=== PATIENT | female | born 1935 | race Caucasian/White ===

== ENCOUNTER 2023-11-15 11:15 | Inpatient (IN) | payer OTHER ==
[~2023-11-15] VITALS: Ht 175.3 cm; Wt 57.2 kg
[2023-11-15] MEDS ORDERED: THYR90TA PO (11:57)
[2023-11-15] MEDS ORDERED: ASPI81TA31 PO (11:57)
[2023-11-15 12:55] LABS: ABG BASE EXCESS -2.7 mmol/L (-2.0-2.0); ABG HCO3 16.6 mmol/L (22.0-26.0); ABG PCO2 16.7 mmHg (35.0-48.0); ABG PH 7.615 (7.340-7.440); ABG PO2 373.1 mmHg (75.0-100.0); AaDO2 99.9 mmHg; COHb 0.1 % (0.0-3.9); MetHb 0.3 % (0.0-1.5); O2Hb 98.8 % (94.0-97.0)
[2023-11-15] MEDS ORDERED: GUAI-425 PO (13:06)
[2023-11-15] MEDS ORDERED: TRIMETHOPRIM PO (13:06)
[2023-11-15] MEDS ORDERED: PANT40TA49 PO (13:06)
[2023-11-15] MEDS ORDERED: CETI10TA18 PO (13:06)
[2023-11-15] MEDS ORDERED: PROM5SYR PO (13:06)
[2023-11-15] MEDS ORDERED: BREZTRI PO (13:06)
[2023-11-15] MEDS ORDERED: MUPI15CR TP (13:06)
[2023-11-15] MEDS ORDERED: ROSU20TA2 PO (13:06)
[2023-11-15] MEDS ORDERED: MEMA10TA PO (13:06)
[2023-11-15] MEDS ORDERED: FLUT1BLS6 IH (13:06)
[2023-11-15] MEDS ORDERED: FERR325T30 PO (13:06)
[2023-11-15] MEDS ORDERED: SULFAMETHOXAZOLE PO (13:06)
[2023-11-15] MEDS ORDERED: DOXY100C5 PO (13:06)
[2023-11-15] MEDS ORDERED: TYLENOL ARTHRITIS PO (13:06)
[2023-11-15] MEDS ORDERED: DICLOFENAC GEL TP (13:06)
[2023-11-15] MEDS ORDERED: VITAMIN D3 PO (13:06)
[2023-11-15] MEDS ORDERED: BUME1TAB8 PO (13:06)
[2023-11-15] MEDS ORDERED: METO-356 PO (13:06)
[2023-11-15] MEDS ORDERED: IV NORMAL SALINE 1000 ML BAG IV ONE (14:30)
[2023-11-15 17:12] LABS: BASOPHILS % (AUTO) 0.5 % (0.0-2.0); EOSINOPHILS # (AUTO) 0.1 K/uL (0.0-0.7); EOSINOPHILS % (AUTO) 0.6 % (0.0-7.0); HEMATOCRIT 34.2 % (31.2-41.9); HEMOGLOBIN 11.2 g/dL (10.9-14.3); LYMPHOCYTES # (AUTO) 1.5 K/uL (0.8-4.8); LYMPHOCYTES % (AUTO) 15.7 % (20.5-51.5); MEAN CORPUSCULAR HEMOGLOBIN 32.7 uug (24.7-32.8); MEAN CORPUSCULAR HGB CONC 33 g/dL (32.3-35.6); MEAN CORPUSCULAR VOLUME 99.6 fL (75.5-95.3); MONOCYTES # (AUTO) 1.4 K/uL (0.1-1.30); MONOCYTES % (AUTO) 15.4 % (0.0-11.0); NEUTROPHILS # (AUTO) 6.4 K/uL (1.8-8.9); NEUTROPHILS % (AUTO) 67.8 % (38.5-71.5); PLATELET COUNT (AUTO) 277 K/uL (179-408); RED BLOOD CELL COUNT(AUTO) 3.44 MIL/uL (3.63-4.92); RED CELL DISTRIBUTION WIDTH 14.7 % (12.3-17.7); WHITE BLOOD COUNT (AUTO) 9.4 K/uL (3.8-11.8)
[2023-11-15 17:19] LABS: DIFFERENTIAL COMMENT 1
[2023-11-15 17:20] LABS: BAND % (MANUAL) 2 % (0-10); LYMPHOCYTES % (MANUAL) 20 % (20-40); MONOCYTES % (MANUAL) 12 % (2-10)
[2023-11-15 17:21] LABS: NEUTROPHILS % (MANUAL) 66 % (42-75); PLATELET ESTIMATE ADEQUATE
[2023-11-15 17:31] LABS: CALCIUM 9.2 mg/dL (8.5-10.1); CARBON DIOXIDE 20 mmol/L (21-32); CHLORIDE 105 mmol/L (98-107); CREATININE 1.9 mg/dL (0.6-1.3); GLUCOSE 87 mg/dL (74-106); POTASSIUM 4.2 mmol/L (3.5-5.1); SODIUM SERUM 142 mmol/L (136-145); UREA NITROGEN, BLOOD 32 mg/dL (7-18)
[2023-11-15 17:44] LABS: ALANINE AMINOTRANSFERASE 48 U/L (14-59); ALBUMIN 3.5 g/dL (3.4-5.0); ALKALINE PHOSPHATASE 92 U/L (50-136); ASPARTATE AMINOTRANSFERASE 31 U/L (15-37); BILIRUBIN,DIRECT 0.1 mg/dL (0.0-0.2); BILIRUBIN,TOTAL 0.6 mg/dL (0.2-1.0); NT-PRO BNP 4111 pg/mL (0-125); TOTAL PROTEIN, SERUM 7.4 g/dL (6.4-8.2)
[2023-11-15] MEDS ORDERED: ENOXAPARIN SODIUM 60 MG/0.6 ML DISP.SYRIN SQ ONE ×2 (18:30→19:19)
[2023-11-16] MEDS ORDERED: MORPHINE SULFATE 2 MG/1 ML DISP.SYRIN IVP PRN (03:45)
[2023-11-16] MEDS ORDERED: CLONIDINE HCL 0.1 MG TABLET PO ONE (03:45)
[2023-11-16] MEDS ORDERED: ACETAMINOPHEN 325 MG TABLET PO PRN (03:45)
[2023-11-16] MEDS ORDERED: hydrALAZINE HCL 20 MG/1 ML VIAL IV PRN (03:45)
[2023-11-16] MEDS ORDERED: ALBUTEROL SULFATE 8 GM HFA.AER.AD IH PRN (03:45)
[2023-11-16] MEDS ORDERED: CLONIDINE HCL 0.1 MG TABLET ONE (03:54)
[2023-11-16] MEDS ORDERED: ALBUTEROL SULFATE 1.25 MG/3 ML NEBU NEB PRN (05:30)
[2023-11-16] MEDS: THYROID 60 MG TABLET PO SCH (07:00)
[2023-11-16] MEDS: PANTOPRAZOLE SODIUM 40 MG TABLET.DR PO SCH (07:00)
[2023-11-16] MEDS ORDERED: PANTOPRAZOLE SODIUM 40 MG TABLET.DR PO ONE (08:22)
[2023-11-16] MEDS ORDERED: Medication Not On Formulary EA (Thyroid (Armour Thyroid) 1 TAB) PO SCH (09:00)
[2023-11-16] MEDS ORDERED: MEMANTINE HCL 10 MG TABLET PO SCH (09:00)
[2023-11-16] MEDS ORDERED: Medication Not On Formulary EA (Rosuvastatin Calcium (Crestor) 1 TAB) PO SCH (09:00)
[2023-11-16] MEDS ORDERED: ASPIRIN 81 MG TAB.CHEW ONE (09:34)
[2023-11-16] MEDS ORDERED: methylPREDNISolone SOD SUCC 125 MG/2 ML VIAL ONE (09:34)
[2023-11-16] MEDS ORDERED: HEPARIN SODIUM,PORCINE 5,000 UNITS/ML VIAL ONE (09:35)
[2023-11-16] MEDS ORDERED: METOPROLOL SUCCINATE XL 25 MG TAB.SR.24H PO ONE (09:35)
[2023-11-16] MEDS: methylPREDNISolone SOD SUCC 40 MG/ML VIAL IV SCH ×2 (09:41→17:14)
[2023-11-16] MEDS: ASPIRIN 81 MG TAB.CHEW PO SCH (09:41)
[2023-11-16] MEDS: METOPROLOL SUCCINATE XL 25 MG TAB.SR.24H PO SCH (09:45)
[2023-11-16] MEDS: HEPARIN SODIUM,PORCINE 5,000 UNITS/ML VIAL SQ SCH ×2 (09:46→22:08)
[2023-11-16] MEDS: MEMANTINE HCL 5 MG TABLET PO SCH ×2 (09:54→17:17)
[2023-11-16] MEDS: FLUTICASONE/VILANTEROL 1 EACH BLST.W.DEV INH SCH (09:54)
[2023-11-16] MEDS ORDERED: ONDANSETRON 4 MG/2 ML VIAL ONE (10:01)
[2023-11-16] MEDS: ONDANSETRON 4 MG/2 ML VIAL IV PRN ×2 (10:06→10:47)
[2023-11-16] MEDS ORDERED: LORAZEPAM 2 MG/1 ML VIAL ONE (10:57)
[2023-11-16] MEDS ORDERED: LORAZEPAM 2 MG/1 ML VIAL IV PRN (11:15)
[2023-11-16] MEDS ORDERED: LORAZEPAM 1 MG TABLET PO PRN (11:45)
[2023-11-16] MEDS ORDERED: BUMETANIDE 1 MG TABLET PO SCH (12:10)
[2023-11-16] MEDS ORDERED: BUMETANIDE 1 MG TABLET ONE (12:34)
[2023-11-16] MEDS ORDERED: methylPREDNISolone SOD SUCC 40 MG/ML VIAL ONE (17:14)
[2023-11-16] MEDS ORDERED: ATORVASTATIN 40 MG TABLET PO SCH (21:00)
[2023-11-16 21:58] VITALS: BP 145/80; TEMP 97.8; O2SAT 98
[2023-11-17] MEDS: methylPREDNISolone SOD SUCC 40 MG/ML VIAL IV SCH (03:33)
[2023-11-17 05:50] VITALS: BP 146/79; TEMP 97.9; O2SAT 96
[2023-11-17] MEDS: PANTOPRAZOLE SODIUM 40 MG TABLET.DR PO SCH (06:20)
[2023-11-17 06:39] LABS: BASOPHILS % (AUTO) 0.1 % (0.0-2.0); DIFFERENTIAL COMMENT 0; EOSINOPHILS % (AUTO) 0.2 % (0.0-7.0); HEMATOCRIT 32.4 % (31.2-41.9); HEMOGLOBIN 10.8 g/dL (10.9-14.3); LYMPHOCYTES # (AUTO) 0.8 K/uL (0.8-4.8); LYMPHOCYTES % (AUTO) 9.8 % (20.5-51.5); MEAN CORPUSCULAR HEMOGLOBIN 33.4 uug (24.7-32.8); MEAN CORPUSCULAR HGB CONC 33 g/dL (32.3-35.6); MONOCYTES # (AUTO) 0.6 K/uL (0.1-1.30); MONOCYTES % (AUTO) 8.2 % (0.0-11.0); NEUTROPHILS # (AUTO) 6.3 K/uL (1.8-8.9); NEUTROPHILS % (AUTO) 81.7 % (38.5-71.5); PLATELET COUNT (AUTO) 254 K/uL (179-408); RED BLOOD CELL COUNT(AUTO) 3.24 MIL/uL (3.63-4.92); RED CELL DISTRIBUTION WIDTH 14.9 % (12.3-17.7); WHITE BLOOD COUNT (AUTO) 7.7 K/uL (3.8-11.8)
[2023-11-17 06:51] LABS: ALANINE AMINOTRANSFERASE 46 U/L (14-59); ALBUMIN 3.1 g/dL (3.4-5.0); ALKALINE PHOSPHATASE 85 U/L (50-136); ASPARTATE AMINOTRANSFERASE 29 U/L (15-37); BILIRUBIN,TOTAL 0.5 mg/dL (0.2-1.0); CALCIUM 8.6 mg/dL (8.5-10.1); CARBON DIOXIDE 22 mmol/L (21-32); CHLORIDE 106 mmol/L (98-107); CREATININE 1.5 mg/dL (0.6-1.3); GLUCOSE 98 mg/dL (74-106); PHOSPHOROUS 4.2 mg/dL (2.5-4.9); POTASSIUM 4.7 mmol/L (3.5-5.1); SODIUM SERUM 139 mmol/L (136-145); UREA NITROGEN, BLOOD 30 mg/dL (7-18)
[2023-11-17 09:08] LABS: THYROID STIMULATING HORMONE 21.411 mIU/mL (0.358-3.740)
[2023-11-17] MEDS: ASPIRIN 81 MG TAB.CHEW PO SCH (09:20)
[2023-11-17] MEDS: MEMANTINE HCL 5 MG TABLET PO SCH ×2 (09:20→16:35)
[2023-11-17] MEDS: METOPROLOL SUCCINATE XL 25 MG TAB.SR.24H PO SCH (09:21)
[2023-11-17] MEDS: HEPARIN SODIUM,PORCINE 5,000 UNITS/ML VIAL SQ SCH ×2 (09:22→21:06)
[2023-11-17] MEDS: FLUTICASONE/VILANTEROL 1 EACH BLST.W.DEV INH SCH (09:23)
[2023-11-17] MEDS: VANCOMYCIN IV 750 MG in IV DEXTROSE 5% 250 ML IV SCH ×3 (09:27→21:22)
[2023-11-17] MEDS: FUROSEMIDE 20 MG/2 ML VIAL IV SCH ×2 (09:27→21:04)
[2023-11-17 11:34] VITALS: BP 132/62; TEMP 97.6; O2SAT 98
[2023-11-17] MEDS: PIPERACILLIN/TAZO 2.25 G in IV DEXTROSE 5% 50 ML IV SCH ×2 (12:15→17:45)
[2023-11-17 15:20] VITALS: BP 114/71; TEMP 97.5; O2SAT 95
[2023-11-17] MEDS: THYROID 60 MG TABLET PO SCH (16:35)
[2023-11-17 20:00] VITALS: BP 118/61; TEMP 98; O2SAT 95
[2023-11-17] MEDS: ATORVASTATIN 10 MG TABLET PO SCH (21:04)
[2023-11-17] MEDS ORDERED: VANCOMYCIN IV 200 ML ONE (21:10)
[2023-11-17] MEDS ORDERED: CEFTRIAXONE /D5W 50ML IVPB **ER PYXIS IV ONE (22:38)
[2023-11-17] MEDS: CEFTRIAXONE 1 G in IV DEXTROSE 5% 50 ML IV SCH (22:51)
[2023-11-18] VITALS: BP 135/81; TEMP 97.6; O2SAT 96
[2023-11-18 01:22] LABS: *BILIRUBIN,URIN NEGATIVE (NEGATIVE); *BLOOD, URINE NEGATIVE (NEGATIVE); *CLARITY,URINE CLEAR (CLEAR); *COLOR,URINE YELLOW (YELLOW); *KETONES,URINE NEGATIVE (NEGATIVE); *PROTEIN,URINE NEGATIVE (NEGATIVE); *UROBILINOGEN,URINE 0.2 E.U./dl (NORMAL); LEUKOCYTE ESTERASE ,URINE 1+ (NEGATIVE); NITRITE, URINE NEGATIVE (NEGATIVE); PH,URINE 5.5 (5.0-8.0); UGLUCOSE NEGATIVE (NEGATIVE)
[2023-11-18 01:35] LABS: RBC,URINE 0-3 /HPF (0-3)
[2023-11-18 01:36] LABS: BACTERIA,URINE FEW /HPF (NONE SEEN); SQUAMOUS EPITHELIAL CELL,UR MODERATE /HPF (NONE SEEN)
[2023-11-18 04:00] VITALS: BP 119/55; TEMP 97.7; O2SAT 96
[2023-11-18] MEDS: THYROID 60 MG TABLET PO SCH (06:15)
[2023-11-18] MEDS: PANTOPRAZOLE SODIUM 40 MG TABLET.DR PO SCH (06:15)
[2023-11-18 06:38] LABS: BASOPHILS % (AUTO) 0.3 % (0.0-2.0); EOSINOPHILS # (AUTO) 0.1 K/uL (0.0-0.7); EOSINOPHILS % (AUTO) 0.4 % (0.0-7.0); HEMATOCRIT 30.8 % (31.2-41.9); HEMOGLOBIN 10.3 g/dL (10.9-14.3); LYMPHOCYTES # (AUTO) 1.4 K/uL (0.8-4.8); MEAN CORPUSCULAR HEMOGLOBIN 33.4 uug (24.7-32.8); MEAN CORPUSCULAR HGB CONC 34 g/dL (32.3-35.6); MEAN CORPUSCULAR VOLUME 99.7 fL (75.5-95.3); MONOCYTES % (AUTO) 14.3 % (0.0-11.0); NEUTROPHILS # (AUTO) 10.3 K/uL (1.8-8.9); PLATELET COUNT (AUTO) 258 K/uL (179-408); RED BLOOD CELL COUNT(AUTO) 3.09 MIL/uL (3.63-4.92); RED CELL DISTRIBUTION WIDTH 15.3 % (12.3-17.7); WHITE BLOOD COUNT (AUTO) 13.7 K/uL (3.8-11.8)
[2023-11-18 07:03] LABS: DIFFERENTIAL COMMENT 1
[2023-11-18 07:35] LABS: CALCIUM 8.7 mg/dL (8.5-10.1); CARBON DIOXIDE 22 mmol/L (21-32); CHLORIDE 102 mmol/L (98-107); CREATININE 1.8 mg/dL (0.6-1.3); GLUCOSE 76 mg/dL (74-106); MAGNESIUM 2.1 mg/dL (1.8-2.4); PHOSPHOROUS 4.1 mg/dL (2.5-4.9); POTASSIUM 4.2 mmol/L (3.5-5.1); SODIUM SERUM 137 mmol/L (136-145); UREA NITROGEN, BLOOD 38 mg/dL (7-18)
[2023-11-18] MEDS: FUROSEMIDE 20 MG/2 ML VIAL IV SCH (08:29)
[2023-11-18] MEDS: MEMANTINE HCL 5 MG TABLET PO SCH ×2 (08:29→16:42)
[2023-11-18] MEDS: ASPIRIN 81 MG TAB.CHEW PO SCH (08:29)
[2023-11-18] MEDS: FLUTICASONE/VILANTEROL 1 EACH BLST.W.DEV INH SCH (08:30)
[2023-11-18] MEDS: METOPROLOL SUCCINATE XL 25 MG TAB.SR.24H PO SCH (08:30)
[2023-11-18] MEDS: SODIUM HYPOCHLORITE 0.25% (HALF STRENGTH) 480 ML BOTTLE TOP SCH (08:31)
[2023-11-18] MEDS: HEPARIN SODIUM,PORCINE 5,000 UNITS/ML VIAL SQ SCH ×2 (08:34→21:03)
[2023-11-18 13:13] VITALS: BP 115/71; TEMP 97.8; O2SAT 97
[2023-11-18 17:06] VITALS: BP_SYST 122; BP_SYST 123; BP_DIAS 60; BP_DIAS 65; BP_DIAS 69
[2023-11-18 19:39] VITALS: BP 129/77; TEMP 97.9; O2SAT 96
[2023-11-18] MEDS: CEFTRIAXONE 1 G in IV DEXTROSE 5% 50 ML IV SCH (20:52)
[2023-11-18] MEDS: ATORVASTATIN 10 MG TABLET PO SCH (21:02)
[2023-11-19] MEDS: VANCOMYCIN IV 750 MG in IV DEXTROSE 5% 250 ML IV SCH (04:27)
[2023-11-19 04:46] VITALS: BP 118/65; TEMP 97.8; O2SAT 97
[2023-11-19] MEDS: THYROID 60 MG TABLET PO SCH (06:05)
[2023-11-19] MEDS: PANTOPRAZOLE SODIUM 40 MG TABLET.DR PO SCH (06:05)
[2023-11-19 06:33] LABS: BASOPHILS % (AUTO) 0.3 % (0.0-2.0); EOSINOPHILS # (AUTO) 0.1 K/uL (0.0-0.7); EOSINOPHILS % (AUTO) 0.6 % (0.0-7.0); HEMATOCRIT 33.3 % (31.2-41.9); LYMPHOCYTES # (AUTO) 1.2 K/uL (0.8-4.8); LYMPHOCYTES % (AUTO) 13.3 % (20.5-51.5); MEAN CORPUSCULAR HGB CONC 33 g/dL (32.3-35.6); MEAN CORPUSCULAR VOLUME 100.4 fL (75.5-95.3); MONOCYTES # (AUTO) 1.9 K/uL (0.1-1.30); MONOCYTES % (AUTO) 21.7 % (0.0-11.0); NEUTROPHILS # (AUTO) 5.7 K/uL (1.8-8.9); NEUTROPHILS % (AUTO) 64.1 % (38.5-71.5); PLATELET COUNT (AUTO) 241 K/uL (179-408); RED BLOOD CELL COUNT(AUTO) 3.32 MIL/uL (3.63-4.92); RED CELL DISTRIBUTION WIDTH 14.9 % (12.3-17.7); WHITE BLOOD COUNT (AUTO) 8.9 K/uL (3.8-11.8)
[2023-11-19 06:54] LABS: DIFFERENTIAL COMMENT 1
[2023-11-19 07:19] LABS: CALCIUM 8.8 mg/dL (8.5-10.1); CARBON DIOXIDE 28 mmol/L (21-32); CHLORIDE 103 mmol/L (98-107); CREATININE 1.7 mg/dL (0.6-1.3); GLUCOSE 90 mg/dL (74-106); MAGNESIUM 2.1 mg/dL (1.8-2.4); SODIUM SERUM 139 mmol/L (136-145); UREA NITROGEN, BLOOD 39 mg/dL (7-18)
[2023-11-19] MEDS: FLUTICASONE/VILANTEROL 1 EACH BLST.W.DEV INH SCH (09:01)
[2023-11-19] MEDS: MEMANTINE HCL 5 MG TABLET PO SCH ×2 (09:02→16:35)
[2023-11-19] MEDS: HEPARIN SODIUM,PORCINE 5,000 UNITS/ML VIAL SQ SCH (09:03)
[2023-11-19] MEDS: SODIUM HYPOCHLORITE 0.25% (HALF STRENGTH) 480 ML BOTTLE TOP SCH (09:03)
[2023-11-19] MEDS: METOPROLOL SUCCINATE XL 25 MG TAB.SR.24H PO SCH (09:10)
[2023-11-19] MEDS: ASPIRIN 81 MG TAB.CHEW PO SCH (09:17)
[2023-11-19 11:43] VITALS: BP 115/68; TEMP 97.5; O2SAT 95
[2023-11-19 12:46] LABS: PLATELET ESTIMATE ADEQUATE
[2023-11-19 12:51] LABS: EOSINOPHILS % (MANUAL) 1 % (0-8); LYMPHOCYTES % (MANUAL) 15 % (20-40)
[2023-11-19 12:52] LABS: MONOCYTES % (MANUAL) 17 % (2-10); NEUTROPHILS % (MANUAL) 67 % (42-75)
[2023-11-19] MEDS ORDERED: ACET325T53 PO (15:02)
[2023-11-19] MEDS ORDERED: ROSU10TA2 PO (15:02)
[2023-11-19] MEDS ORDERED: thyroid armour PO (15:02)
[2023-11-19] MEDS ORDERED: SODI480S2 TOP (15:02)
[2023-11-19 15:44] VITALS: BP 119/86; TEMP 98.7; O2SAT 99
[2023-11-21 13:10] LABS: ADENOVIRUS Not Detected (Not Detected); CORONAVIRUS 229E Not Detected (Not Detected); CORONAVIRUS HKU1 Not Detected (Not Detected); CORONAVIRUS NL63 Not Detected (Not Detected); CORONAVIRUS OC43 Not Detected (Not Detected); NP BORDETELLA PERTUSIS Not Detected (Not Detected); NP CHLAMYDOPHILA PNEUMONIAE Not Detected (Not Detected); NP HUMAN METAPNEUMOVIRUS Not Detected (Not Detected); NP HUMAN RHINO/ENTERO VIRUS Not Detected (Not Detected); NP INFLUENZA A Not Detected (Not Detected); NP INFLUENZA A/H1 Not Detected (Not Detected); NP INFLUENZA A/H1-2009 Not Detected (Not Detected); NP INFLUENZA A/H3 Not Detected (Not Detected); NP INFLUENZA B Not Detected (Not Detected); NP MYCOPLASMA PNEUMONIAE Not Detected (Not Detected); NP PARAINFLUENZA 1 Not Detected (Not Detected); NP PARAINFLUENZA 2 Not Detected (Not Detected); NP PARAINFLUENZA 3 Not Detected (Not Detected); NP PARAINFLUENZA 4 Not Detected (Not Detected); NP RESPIRATORY SYNCYTIAL VIRUS Not Detected (Not Detected)
== END 2023-11-19 18:00 | disposition home health service (06) | DRG 981 ==
LOC: ER 11:15 → TRANSITION 11-16 08:00 → TELE3 11-16 21:16
PROVIDERS: ADMIT Internal Medicine; ATTEND Internal Medicine
PROC: 0KBS3ZZ Excision of Right Lower Leg Muscle, Percutaneous Approach (ICD-10-PCS; principal; 2023-11-17)
DX: J96.01 Acute respiratory failure with hypoxia (principal); I50.33 Acute on chronic diastolic (congestive) heart failure; N17.0 Acute kidney failure with tubular necrosis; I13.0 Hypertensive heart and chronic kidney disease with heart failure and stage 1 through stage 4 chronic kidney disease, or unspecified chronic kidney disease; N17.9 Acute kidney failure, unspecified; L03.115 Cellulitis of right lower limb; I48.20 Chronic atrial fibrillation, unspecified; I31.39 Other pericardial effusion (noninflammatory); D68.59 Other primary thrombophilia; Z95.2 Presence of prosthetic heart valve; N18.30 Chronic kidney disease, stage 3 unspecified; E03.9 Hypothyroidism, unspecified; Z79.890 Hormone replacement therapy; I34.0 Nonrheumatic mitral (valve) insufficiency; I34.1 Nonrheumatic mitral (valve) prolapse; I48.0 Paroxysmal atrial fibrillation; Z96.611 Presence of right artificial shoulder joint; Z79.82 Long term (current) use of aspirin; S81.811A Laceration without foreign body, right lower leg, initial encounter; W01.198A Fall on same level from slipping, tripping and stumbling with subsequent striking against other object, initial encounter; Y92.89 Other specified places as the place of occurrence of the external cause; I73.9 Peripheral vascular disease, unspecified; I70.0 Atherosclerosis of aorta; Z79.899 Other long term (current) drug therapy; I27.20 Pulmonary hypertension, unspecified; I25.10 Atherosclerotic heart disease of native coronary artery without angina pectoris; D53.9 Nutritional anemia, unspecified; Z74.09 Other reduced mobility; F03.A0 Unspecified dementia, mild, without behavioral disturbance, psychotic disturbance, mood disturbance, and anxiety
CPT/HCPCS: 36415; 36600; 70030-TC; 71045; 83605; 83735; 84100; 84443; 84484; 85025; 87040; 93005; 93307; A4606; A4663; A6213; G0378; J0696; J1644; J1650; J1940; J2060; J2405; J2543; J2920; J2930; J3370; J7050